=== PATIENT | male | born 1940 | race Caucasian/White ===

== ENCOUNTER → 2017-10-02 | Outpatient (CLI) | payer MEDICARE ==
[2017-10-02 13:54] LABS: HGB 11.5 gm/dL (13.0-17.5); MCH 32.3 pg (25.0-35.0); MCV 92.4 fL (80.0-100.0); Mean Platelet Volume 7.3; Platelet Count 214 k/uL (150-450); RBC 3.58 m/uL (4.30-5.90); RDW 13.3 % (11.5-15.5)
[2017-10-02 13:57] LABS: ALT 44 U/L (21-72); AST 44 U/L (17-59)
[2017-10-02 14:47] LABS: Eosinophils # (M) 0.18 k/uL (0-0.7); Lymphocytes # (M) 1.68 k/uL (1.0-4.8); Neutrophils # (M) 3.84 k/uL (1.3-7.7); Neutrophils % (M) 64 %; Nucleated Red Blood Cells 0 /100 WBC (0-0); Total Cells Counted 100
== END | disposition home or self-care (01) ==
LOC: LABWHC1 12:59
PROVIDERS: ATTEND Physician Assistant Medical
DX: L30.1 Dyshidrosis [pompholyx] (principal); B35.1 Tinea unguium
CPT/HCPCS: 36415; 84450; 84460; 85025

== ENCOUNTER → 2019-07-17 | Outpatient (CLI) | payer MEDICARE | END | disposition home or self-care (01) | LOC: LABWHC1 17:00 | PROVIDERS: ATTEND Nurse Practitioner Adult Health | DX: I48.91 Unspecified atrial fibrillation (principal) | CPT/HCPCS: 36415; 84443 ==

== ENCOUNTER → 2021-05-30 | Outpatient (CLI) | payer MEDICARE ==
[2021-05-30 15:46] LABS: HGB 13.2 gm/dL (13.0-17.5); MCH 34.5 pg (25.0-35.0); MCHC 34.8 g/dL (31.0-37.0); MCV 99.2 fL (80.0-100.0); Mean Platelet Volume 7.2; Platelet Count 237 k/uL (150-450); RBC 3.83 m/uL (4.30-5.90); RDW 12.3 % (11.5-15.5); WBC 9.5 k/uL (3.8-10.6)
[2021-05-30 15:56] LABS: Potassium 4.8 mmol/L (3.5-5.1)
== END | disposition home or self-care (01) ==
LOC: LABPAT 15:12
PROVIDERS: ATTEND Internal Medicine Interventional Cardiology
DX: Z01.812 Encounter for preprocedural laboratory examination (principal); I25.10 Atherosclerotic heart disease of native coronary artery without angina pectoris
CPT/HCPCS: 36415; 80051; 82565; 84520; 85027

== ENCOUNTER 2021-06-06 05:53 | Day surgery (SDC) | payer MEDICARE ==
[2021-06-02 13:23] VITALS: BMI 25.8
[~2021-06-06 05:53] MED LIST: ALPRAZolam 0.25 MG TAB PO PRN; ALPRAZolam 0.5 MG TAB PO PRN; ASPIRIN 325 MG TAB PO STA; ATORVASTATIN 80 MG TAB PO STA; HEPARIN SODIUM,PORCINE 10,000 UNIT in SODIUM CHLORIDE 0.9% 1,000 ML IRRIGATION PRN; HEPARIN SODIUM,PORCINE 2,500 UNIT in SODIUM CHLORIDE 0.9% 250 ML IRRIGATION PRN; NITROGLYCERIN SL TABS 0.4 MG TAB SUBLINGUAL PRN; SODIUM CHLORIDE 0.9% 1,000 ML in EMPTY BAG 1 BAG IV SCH
[2021-06-06 06:44] VITALS: TEMP 98.1
[2021-06-06] MEDS ORDERED: LIDOCAINE 1% INJ 10MG/ML (20 ML MDV) ONE (07:19)
[2021-06-06] MEDS ORDERED: VERAPAMIL 2.5 MG/ML 2 ML AMP ONE (07:19)
[2021-06-06] MEDS ORDERED: HEPARIN SODIUM 1,000 UN/ML (10ML VL) ONE (07:20)
[2021-06-06] MEDS ORDERED: fentaNYL (PF) 50 MCG/ML 2 ML AMP ONE (07:27)
[2021-06-06] MEDS ORDERED: fentaNYL (PF) 50 MCG/ML 2 ML AMP IV ONE (07:35)
[2021-06-06] MEDS ORDERED: LIDOCAINE 1% INJ 10MG/ML (20 ML MDV) SQ ONE (07:41)
[2021-06-06] MEDS ORDERED: VERAPAMIL SYRINGE (5 MG/10 ML) INTRAARTER ONE (07:44)
[2021-06-06] MEDS ORDERED: HEPARIN SODIUM 1,000 UN/ML (10ML VL) IV ONE (07:48)
[2021-06-06] MEDS ORDERED: IOPAMIDOL-370 125ML BTL INJ ONE (07:55)
[2021-06-06] MEDS ORDERED: SODIUM CHLORIDE 0.9% 1,000 ML IV SCH (08:15)
[2021-06-06] MEDS ORDERED: RX INFO: IV CONTRAST WAS GIVEN 1 EACH MISC MISCELLANE PRN (08:15)
[2021-06-06] MEDS ORDERED: NON FORMULARY DRUG (Amlodipine Besylate/Benazepril [Lotrel 5-10 Mg] 1 EACH Capsule) PO SCH (09:00)
[2021-06-06 10:20] VITALS: PULSE 61; RESP 18
[2021-06-06 10:25] VITALS: BP 132/68
--- NOTE | 2021-06-06 11:36 | CC ---
CARDIAC CATHETERIZATION REPORT Mr. Evans is an 80-year-old male with known history of coronary artery disease, history of chronic persistent atrial fibrillation, hypertension, hyperlipidemia, who has been complaining of progressive dyspnea on exertion. He underwent myocardial perfusion imaging that revealed evidence of inducible ischemia. In view of that, recommendation was made regarding cardiac catheterization, the procedure as well as the risks and the complications were discussed with the patient who is in full understanding and agreement. PROCEDURE DETAILS: Patient was brought to the slab conditioner supervisor in a fasting semi-sedated state after receiving fentanyl and Benadryl and achieving moderate conscious sedated state. Using Xylocaine anesthesia and Seldinger technique, a 6-Albanian sheath was introduced in the right radial artery. Selective right and left coronary angiography performed using 5-Albanian 4 bend right Frandy and 3 and a half bend left Frandy catheter. Multiple views of the coronary arteries including hemiaxial views were obtained. Following that a 5- Albanian tight pigtail catheter was introduced into the left ventricle and left ventricular end-diastolic pressure was calculated. Following that, catheter and sheaths were removed. Hemostasis was obtained with deployment of a TR band. There was no immediate complication. Patient is returned to his room in stable condition. Of note, the patient received 4000 units of intravenous heparin. FINDINGS: FLUOROSCOPY: There was severe calcification involving the left anterior descending artery as well as the left main. LEFT MAIN: This is a short size vessel, bifurcating into left circumflex, left anterior descending coronary artery. Left main coronary artery has no evidence of high-grade stenosis. LEFT ANTERIOR DESCENDING ARTERY: This is a large-sized vessel reaching towards the apex with a wraparound apex segment giving rise to two diagonal branches. The stented segment in the proximal LAD has a 10-20% stenosis. The LAD after the second diagonal branch has an eccentric plaque of about 30-40 percent. The rest of the vessel has no high-grade stenosis. LEFT CIRCUMFLEX: This is a codominant vessel giving rise to 2 obtuse marginal branches. The first one is large in caliber and very proximal. The left circumflex in the mid segment has 10-20% plaque. The distal vessel bifurcating in PDA and PLV has no evidence of high-grade stenosis. RIGHT CORONARY ARTERY: This is a small codominant vessel giving rise to a small PDA. The right coronary artery proximally has a 20% to 30% plaque. The rest of the vessel has no high-grade stenosis. LEFT VENTRICULOGRAM: Left ventriculogram was not performed. HEMODYNAMICS: There was no gradient across the aortic valve. The left ventricle end-diastolic pressure was 10-14 mmHg. CONCLUSION: 1. Mild triple-vessel coronary artery disease. 2. No restenoses in the proximal LAD. 3. Normal left ventricular end-diastolic pressure. RECOMMENDATIONS: In view of findings and anatomy, I recommend continued medical therapy with aggressive coronary risk modifications that have been initiated. Those findings and recommendations were discussed with the patient and his family who are in full understanding and agreement. Duration of sedation is 20 minutes. MMODL / IJN: [id number] /
[2021-06-06] MEDS ORDERED: TAMSULOSIN 0.4 MG CAP.ER.24H PO SCH (21:00)
[2021-06-06] MEDS ORDERED: NIACIN 500 MG PO SCH (21:00)
[2021-06-06] MEDS ORDERED: ATORVASTATIN 20 MG TAB PO SCH (21:00)
[2021-06-07] MEDS ORDERED: ISOSORBIDE MONONITRATE ER 30 MG TAB.ER.24H PO SCH (09:00)
[2021-06-07] MEDS ORDERED: ASPIRIN 81 MG PO SCH (09:00)
== END 2021-06-06 12:34 | disposition home or self-care (01) ==
LOC: CATHCVL 05:53
PROVIDERS: ATTEND Internal Medicine Interventional Cardiology
DX: I25.10 Atherosclerotic heart disease of native coronary artery without angina pectoris (principal); E78.5 Hyperlipidemia, unspecified; I10 Essential (primary) hypertension; Z82.49 Family history of ischemic heart disease and other diseases of the circulatory system
CPT/HCPCS: 93458; 87635; C1894; C1769; J2001; J3010; J1644; Q9967

== ENCOUNTER → 2022-02-20 | Outpatient (CLI) | payer MEDICARE | LOC: CPPFTMAIN 09:30 | PROVIDERS: ATTEND Internal Medicine Interventional Cardiology | DX: R06.00 Dyspnea, unspecified (principal) | CPT/HCPCS: 94060; 94726; 94729 ==

== ENCOUNTER → 2023-03-19 | Outpatient (CLI) | payer MEDICARE ==
[2023-03-19 12:51] LABS: African American GFR (CKD) 58 (>60 ml/min/1.73 sqM); Anion Gap 6 mmol/L; Blood Urea Nitrogen 37 mg/dL (9-20); Carbon Dioxide 27 mmol/L (22-30); Chloride 101 mmol/L (98-107); Non-African American GFR(CKD) 50 (>60 ml/min/1.73 sqM); Potassium 4.8 mmol/L (3.5-5.1); Sodium 134 mmol/L (137-145)
[2023-03-19 12:58] LABS: NT-Pro-B-Type Natriuretic Pept 776 pg/mL
== END | disposition home or self-care (01) ==
LOC: LABWHC1 11:22
PROVIDERS: ATTEND Internal Medicine Interventional Cardiology
DX: I42.8 Other cardiomyopathies (principal)
CPT/HCPCS: 36415; 80051; 82565; 83880; 84520

== ENCOUNTER → 2023-10-22 | Outpatient (CLI) | payer MEDICARE ==
[2023-10-22 13:08] LABS: African American GFR (CKD) 66 (>60 ml/min/1.73 sqM); Anion Gap 7 mmol/L; Blood Urea Nitrogen 26 mg/dL (9-20); Calcium 9.3 mg/dL (8.4-10.2); Carbon Dioxide 24 mmol/L (22-30); Chloride 106 mmol/L (98-107); Glucose 96 mg/dL (74-99); Non-African American GFR(CKD) 57 (>60 ml/min/1.73 sqM); Potassium 4.6 mmol/L (3.5-5.1); Sodium 137 mmol/L (137-145)
[2023-10-22 13:18] LABS: NT-Pro-B-Type Natriuretic Pept 1740 pg/mL
== END | disposition home or self-care (01) ==
LOC: LABWHC1 12:09
PROVIDERS: ATTEND Internal Medicine Interventional Cardiology
DX: I42.8 Other cardiomyopathies (principal); I50.22 Chronic systolic (congestive) heart failure
CPT/HCPCS: 36415; 80048; 83880

== ENCOUNTER → 2024-11-11 | Outpatient (CLI) | payer MEDICARE ==
[2024-11-11 16:06] LABS: ALT 33 U/L (10-49); AST 40 U/L (14-35); Albumin 4.2 g/dL (3.8-4.9); Albumin/Globulin Ratio 1.91 Ratio (1.60-3.17); Alkaline Phosphatase 55 U/L (41-126); BUN/Creat Ratio 25.77 Ratio (12.00-20.00); Blood Urea Nitrogen 33.5 mg/dL (9.0-27.0); Calcium 9.2 mg/dL (8.7-10.3); Carbon Dioxide 25.6 mmol/L (21.6-31.8); Chloride 105 mmol/L (96-109); Chol/HDL Ratio 2.81 Ratio; Globulin 2.2 g/dL (1.6-3.3); Glucose 94 mg/dL (70-110); LDL Cholesterol,Calculated 105.5 mg/dL (0.0-131.0); Potassium 4.8 mmol/L (3.5-5.5); Sodium 140 mmol/L (135-145); Total Bilirubin 0.5 mg/dL (0.3-1.2); Total Protein 6.4 g/dL (6.2-8.2)
== END | disposition home or self-care (01) ==
LOC: LABWHC1 10:09
PROVIDERS: ATTEND Internal Medicine Interventional Cardiology
DX: E78.2 Mixed hyperlipidemia (principal)
CPT/HCPCS: 36415; 80053; 80061

== ENCOUNTER 2024-12-19 07:13 | Emergency (ER) | payer MEDICARE ==
[2024-12-19 07:20] VITALS: RESP 18; TEMP 97.5
[2024-12-19] MEDS: OXYMETAZOLINE 0.05% NASL SPRAY 1 SPRAY BOTTLE NASAL STA (07:27)
--- NOTE | 2024-12-19 07:56 | ED ---
General Adult HPI - General Chief complaint: ENT Stated complaint: nosebleed Time Seen by Provider: 12/19/24 07:18 Source: patient, EMS, RN notes reviewed, old records reviewed Mode of arrival: EMS Limitations: no limitations - History of Present Illness Initial comments: Patient is an 84-year-old male who presents emergency department complaining of nosebleed. Patient is on Xarelto. Nosebleed started between 4 to 5 AM. Does not frequently have nosebleeds. Unknown which nares is coming from. States he has just applied pinching pressure with a rag but has not attempted to pack the nose at any point. Presents because the bleeding has continued. Denies any injuries. Denies any chest pain, shortness of breath, abdominal pain, nausea, vomiting. Denies any other obvious acute complaints at this time. Presents for further evaluation at this time. Is not on nasal cannula oxygen. Denies any nose trauma. - Related Data Home Medications Medication Instructions Recorded Confirmed Aspirin 81 mg PO DAILY 10/05/14 06/06/21 Atorvastatin [Lipitor] 20 mg PO HS 10/05/14 06/06/21 Ibuprofen [Motrin] 200 mg PO Q6HR PRN 10/05/14 06/02/21 Isosorbide Mononitrate ER [Imdur] 30 mg PO QAM 10/05/14 06/06/21 Niacin [Niacin ER] 500 mg PO HS 10/05/14 06/06/21 Tamsulosin HCl [Flomax] 0.4 mg PO HS 10/05/14 06/06/21 Rivaroxaban [Xarelto] 20 mg PO DAILY 06/02/21 06/06/21 amLODIPine BESYLATE/BENAZEPRIL 1 cap PO DAILY 06/02/21 06/06/21 [Lotrel 5-10 MG] Allergies Allergy/AdvReac Type Severity Reaction Status Date / Time No Known Allergies Allergy Verified 06/02/21 13:15 Review of Systems ROS Statement: Those systems with pertinent positive or pertinent negative responses have been documented in the HPI. Review of Systems: CONST: Denies fever EYES: Denies blurry vision ENT: Endorses nosebleed C/V: Denies Chest pain RESP: Denies shortness of breath GI: Denies abdominal pain : Denies dysuria SKIN: Denies rash. MSK: Denies joint pain. NEURO: Denies headache ROS Other: All systems not noted in ROS Statement are negative. Past Medical History Past Medical History: Hyperlipidemia, Hypertension, Osteoarthritis (OA), Prostate Disorder History of Any Multi-Drug Resistant Organisms: None Reported Past Surgical History: Back Surgery, Heart Catheterization With Stent, Orthopedic Surgery Additional Past Surgical History / Comment(s): kidney stone surgery x2 Past Anesthesia/Blood Transfusion Reactions: Motion Sickness Date of Last Stent Placement:: 2008 Past Psychological History: No Psychological Hx Reported Smoking Status: Never smoker Past Alcohol Use History: None Reported Past Drug Use History: None Reported - Past Family History Sister(s) Family Medical History: Cancer Daughter(s) Family Medical History: Cancer General Exam - General Exam Comments Initial Comments: General: Appears in mild distress secondary to nosebleed. HEAD: Normal with no signs of head trauma. EYES: EOMI. ENT: Hearing grossly intact. Bleeding primarily from the left nare. No obvious visualized bleed present. No obvious bleeding from the right nare. Patient does have some blood in the posterior oropharynx likely from the nosebleed. No stridor. No respiratory distress. No airways compromise. Posterior oropharynx otherwise within acceptable limits. Uvula midline. RESPIRATORY: No respiratory distress. Clear breath sounds bilaterally. No hypoxia. C/V: Regular rate and rhythm. S1 and S2 auscultated. Bilateral radial artery pulses within acceptable limits ABD: Abdomen is nondistended. EXT: No obvious deformity. SKIN: No rashes or lesions observed on exposed skin. NEURO: Alert and oriented. Limitations: no limitations Course Vital Signs 12/19/24 12/19/24 12/19/24 07:15 10:11 10:20 Temperature 97.5 F L Pulse Rate 67 70 70 Respiratory 18 18 Rate Blood Pressure 179/102 128/76 O2 Sat by Pulse 100 98 Oximetry 12/19/24 12/19/24 10:21 13:15 Temperature Pulse Rate 62 66 Respiratory 18 Rate Blood Pressure 131/81 O2 Sat by Pulse 97 Oximetry Medical Decision Making - Medical Decision Making Was pt. sent in by a medical professional or institution (, PA, ELECTRIC SPOT WELDER, urgent care, hospital, or long-term...) When possible be specific @ -No Did you speak to anyone other than the patient for history (EMS, parent, family, police, friend...)? What history was obtained from this source @ -No Did you review nursing and triage notes (agree or disagree)? Why? @ -I reviewed and agree with nursing and triage notes Were old charts reviewed (outside hosp., previous admission, EMS record, old EKG, old radiological studies, urgent care reports/EKG's, long-term records)? Report findings @ -No old charts were reviewed Differential Diagnosis (chest pain, altered mental status, abdominal pain women, abdominal pain men, vaginal bleeding, weakness, fever, dyspnea, syncope, headache, dizziness, GI bleed, back pain, seizure, CVA, palpatations, mental health, musculoskeletal)? @ -Epistaxis, nasal trauma, allergies, this list is not all inclusive. EKG interpreted by me (3pts min.). @ -None done X-rays interpreted by me (1pt min.). @ -None done CT interpreted by me (1pt min.). @ -None done U/S interpreted by me (1pt. min.). @ -None done What testing was considered but not performed or refused? (CT, X-rays, U/S, labs)? Why? @ -None What meds were considered but not given or refused? Why? @ -Considered's Kcentra administration for reversal however this does not appear to be a life-threatening bleed, but rather just a persistent ooze. Discussed with patient's patient's son and they would like to avoid at this time. We will continue to reevaluate for need. Did you discuss the management of the patient with other professionals (professionals i.e. , PA, ELECTRIC SPOT WELDER, lab, RT, psych nurse, secondary social studies teacher, deer farmer, teacher, ambulance officer, case advocate)? Give summary @ -No Was smoking cessation discussed for >3mins.? @ -No Was critical care preformed (if so, how long)? @ -yes, 45 min Were there social determinants of health that impacted care today? How? (Homelessness, low income, unemployed, alcoholism, drug addiction, transportation, low edu. Level, literacy, decrease access to med. care, assisted, rehab)? @ -No Was there de-escalation of care discussed even if they declined (Discuss DNR or withdrawal of care, Hospice)? DNR status @ -No What co-morbidities impacted this encounter? (DM, HTN, Smoking, COPD, CAD, Cancer, CVA, ARF, Chemo, Hep., AIDS, mental health diagnosis, sleep apnea, morbid obesity)? @ -None Was patient admitted / discharged? Hospital course, mention meds given and route, prescriptions, significant lab abnormalities, going to OR and other pertinent info. @ -Patient presents with epistaxis on Xarelto. He is 84 years old. No other obvious complaints. Seems to be isolated to the left nare however we will have the patient blow out all clots and blood which she completed. Patient sprayed with Afrin in both naris and packing completed with gauze. Nasal clamp placed. Packing will remain in place for at least 45 minutes to an hour. He was in agreement this plan. Vitals are within acceptable limits. Patient initially did have bleeding cessation for the initial hour and on final reevaluation he began bleeding again. This was at approximately 8:30 AM. On and off he bled for another hour after attempting another packing episode. Decision made to place a Rhino Rocket and patient was in agreement this plan. This was placed in the left nare as right nare does not seem to be bleeding. Basic labs were obtained as well because patient was feeling lightheaded. These returned remarkable for mild anemia of 11.9 but no other obvious acute process. Patient's son who is a pharmacist at our facility presented and we discussed further options, and agreed to IV TXA as well as inhaled TXA and further observation. At approximately 11 AM, patient was still having some mild oozing, unknown if it is from just the left nare or if it is posterior right nare. I did offer to place an additional Rhino Rocket however they would like to try TXA soaked gauze at this time. I believe this is reasonable. He is protecting his airway but as we have held him here for multiple hours with continued nosebleeds over that period of time, and after discussion with patient as well as patient's son, they all agree that the patient should be observed and evaluated by ENT. We do not have ENT coverage at our facility this weekend. I discussed with them that they were in agreement with plan for transfer and requested [facility] for observation and ENT evaluation. Patient empirically given a dose of Unasyn. I spoke with [facility] who accepted the patient. Accepting physician is Dr. Chau. Undiagnosed new problem with uncertain prognosis? @ -No Drug Therapy requiring intensive monitoring for toxicity (Heparin, Nitro, Insulin, Cardizem)? @ -No Were any procedures done? @ -Nasal packing Diagnosis/symptom? @ -Epistaxis on Xarelto Acute, or Chronic, or Acute on Chronic? @ -Acute Uncomplicated (without systemic symptoms) or Complicated (systemic symptoms)? @ -Complicated Side effects of treatment? @ -None Exacerbation, Progression, or Severe Exacerbation] @ -No Poses a threat to life or bodily function? @ -Potentially, yes - Lab Data Result diagrams: 12/19/24 08:51 12/19/24 08:50 Lab Results 12/19/24 12/19/24 12/19/24 Range/Units 08:50 08:50 08:51 WBC 11.29 H (4.50-10.00) 10*3/uL RBC 3.62 L (4.40-5.60) 10*6/uL Hgb 11.9 L (13.0-17.0) g/dL Hct 34.7 L (39.6-50.0) % MCV 95.9 (80.0-97.0) fL MCH 32.9 H (27.0-32.0) pg MCHC 34.3 (32.0-37.0) g/dL Plt Count 209 (140-440) 10*3/uL MPV 9.2 L (9.5-12.2) fL Immature Gran % (Auto) 0.7 % Neutrophils % 67.8 % Lymphocytes % 20.2 % Monocytes % 10.0 % Eosinophils % 0.9 % Basophils % 0.4 % Immature Gran # 0.08 H (0.00-0.04) 10*3/uL Neutrophils # 7.65 (1.80-7.70) 10*3/uL Lymphocytes # 2.28 (0.90-5.00) 10*3/uL Monocytes # 1.13 H (0.20-1.00) 10*3/uL Eosinophils # 0.10 (0.04-0.35) 10*3/uL Basophils # 0.05 (0.00-0.10) 10*3/uL PT 15.1 H (10.0-12.5) sec INR 1.4 H (<1.2) APTT 25.4 (22.0-30.0) sec Sodium 137 (137-145) mmol/L Potassium 3.7 (3.5-5.1) mmol/L Chloride 107 (98-107) mmol/L Carbon Dioxide 19 L (22-30) mmol/L Anion Gap 11 mmol/L BUN 54 H (9-20) mg/dL Creatinine 1.27 H (0.66-1.25) mg/dL Est GFR (CKD-EPI)AfAm 59 (>60 ml/min/1.73 sqM) Est GFR (CKD-EPI)NonAf 51 (>60 ml/min/1.73 sqM) Glucose 103 H (74-99) mg/dL Calcium 8.8 (8.4-10.2) mg/dL Total Bilirubin 0.7 (0.2-1.3) mg/dL AST 40 (17-59) U/L ALT 30 (4-49) U/L Alkaline Phosphatase 43 (38-126) U/L Total Protein 5.7 L (6.3-8.2) g/dL Albumin 3.4 L (3.5-5.0) g/dL Critical Care Time Critical Care Time: Yes Total Critical Care Time: 45 Disposition Clinical Impression: Epistaxis Disposition: OTHER INSTITUTION NOT DEFINED Condition: Stable Referrals: None,Stated [Primary Care Provider] - 1-2 days Time of Disposition: 11:22 - Out of Hospital Transfer - Req. Specs Out of Hospital Transfer - Requested Specifics: Other Emergency Center ([facility] for ENT evaluation. ENT not available at our facility.)
[2024-12-19] MEDS: ONDANSETRON 4 MG/2 ML VIAL IVP STA (08:42)
[2024-12-19] MEDS: LIDOCAINE VISCOUS 2% 15 ML CUP MUCOUS MEM ONE (09:04)
[2024-12-19] MEDS: SODIUM CHLORIDE 0.9% 1,000 ML IV ONE (09:04)
[2024-12-19 09:10] LABS: Basophils # (A) 0.05 10*3/uL (0.00-0.10); Basophils % (A) 0.4 %; Eosinophils % (A) 0.9 %; HCT 34.7 % (39.6-50.0); HGB 11.9 g/dL (13.0-17.0); Lymphocytes # (A) 2.28 10*3/uL (0.90-5.00); Lymphocytes % (A) 20.2 %; MCH 32.9 pg (27.0-32.0); MCHC 34.3 g/dL (32.0-37.0); MCV 95.9 fL (80.0-97.0); Mean Platelet Volume 9.2 fL (9.5-12.2); Monocytes # (A) 1.13 10*3/uL (0.20-1.00); Neutrophils # (A) 7.65 10*3/uL (1.80-7.70); Neutrophils % (A) 67.8 %; Platelet Count 209 10*3/uL (140-440); RBC 3.62 10*6/uL (4.40-5.60); RDW 13.8 % (11.5-14.5); WBC 11.29 10*3/uL (4.50-10.00)
[2024-12-19 09:24] LABS: INR 1.4 (<1.2); Partial Thromboplastin Time 25.4 sec (22.0-30.0); Prothrombin Time 15.1 sec (10.0-12.5)
[2024-12-19 09:28] LABS: ALT 30 U/L (4-49); AST 40 U/L (17-59); African American GFR (CKD) 59 (>60 ml/min/1.73 sqM); Albumin 3.4 g/dL (3.5-5.0); Alkaline Phosphatase 43 U/L (38-126); Anion Gap 11 mmol/L; Blood Urea Nitrogen 54 mg/dL (9-20); Calcium 8.8 mg/dL (8.4-10.2); Carbon Dioxide 19 mmol/L (22-30); Chloride 107 mmol/L (98-107); Glucose 103 mg/dL (74-99); Non-African American GFR(CKD) 51 (>60 ml/min/1.73 sqM); Potassium 3.7 mmol/L (3.5-5.1); Sodium 137 mmol/L (137-145); Total Bilirubin 0.7 mg/dL (0.2-1.3); Total Protein 5.7 g/dL (6.3-8.2)
[2024-12-19] MEDS: TRANEXAMIC 1,000 MG/100ML-NACL 1,000 MG in SALINE 1 100ML.BAG IV STA (09:30)
[2024-12-19] MEDS: TRANEXAMIC ACID 1,000 MG/10 ML VIAL MISCELLANE ONE (10:04)
[2024-12-19] MEDS: AMPICILLIN-SULBACTAM 3 GM in SODIUM CHLORIDE 0.9% 100 ML IVPB STA (11:25)
[2024-12-19 13:16] VITALS: BP 131/81; PULSE 66
== END 2024-12-19 13:23 | disposition other institution (70) ==
LOC: EC 07:13
DX: R04.0 Epistaxis (principal)
CPT/HCPCS: 36415; 94640; 80053; 85025; 85610; 85730; 99285; 96365; 96366; 96368; 96375; 30901; J2405; J0295

== ENCOUNTER → 2025-02-19 | Outpatient (CLI) | payer MEDICARE ==
[2025-02-19 10:26] LABS: ALT 48 U/L (10-49); AST 49 U/L (14-35); Albumin 3.8 g/dL (3.8-4.9); Alkaline Phosphatase 45 U/L (41-126); BUN/Creat Ratio 33.55 Ratio (12.00-20.00); Blood Urea Nitrogen 36.9 mg/dL (9.0-27.0); Calcium 8.6 mg/dL (8.7-10.3); Chloride 104 mmol/L (96-109); Chol/HDL Ratio 1.96 Ratio; Glucose 86 mg/dL (70-110); LDL Cholesterol,Calculated 79.4 mg/dL (0.0-131.0); Potassium 4.8 mmol/L (3.5-5.5); Sodium 138 mmol/L (135-145); Total Bilirubin 0.4 mg/dL (0.3-1.2); Total Protein 5.8 g/dL (6.2-8.2); VLDL Calculation 8.64 mg/dL (5.00-40.00)
== END | disposition home or self-care (01) ==
LOC: LABWHC1 07:11
PROVIDERS: ATTEND Internal Medicine Interventional Cardiology
DX: E78.2 Mixed hyperlipidemia (principal)
CPT/HCPCS: 36415; 80053; 80061